=== PATIENT | male | born 1995 | race Caucasian/White ===

== ENCOUNTER 2017-12-26 12:36 | Emergency (ER) | payer OTHER ==
[~2017-12-26] VITALS: Ht 177.8 cm; Wt 68.0 kg
[~2017-12-26 12:36] MED LIST: ACETAMINOPHEN; ACETAMINOPHEN-1 EAC1 PO; ALLERGEN EAR DR15 M1 OT; AMOXICILLIN 50500 MG PO; AMOXICILLIN500 M1 PO; BACTROBAN15 GM TP; CARISOPRODOL 3350 MG PO; CIPROFLOXACIN500 M1 PO; FLOMAX0.4 MG PO; HYDROCODONE-APA1 TA1 PO; IBUPROFEN 400400 M1 PO; IBUPROFEN 800800 M1 PO; KEFLEX500 MG PO; LEXAPRO 10 MG T10 M1 PO; NOHOMEMEDICATIONS; NORCO 5-325 TA1 EACH PO; PERCOCET 5-3251 EACH PO; PERCOCET PO; TESSALON PERLE100 MG PO; ZOFRAN4 MG PO
[2017-12-26 12:49] LABS: ABSOLUTE BASOPHILS 0.1 thou/uL (0.0-0.2); ABSOLUTE EOSINOPHILS 0.1 thou/uL (0.0-0.7); ABSOLUTE LYMPHOCYTES 3.5 thou/uL (0.8-5.3); ABSOLUTE MONOCYTES 0.8 thou/uL (0.0-1.2); EOSINOPHILS 1.2 %; HEMATOCRIT 45.1 % (42.0-52.0); LYMPHOCYTES 40.9 %; MCH 28.8 pg (26.0-34.0); MCHC 33.2 g/dL (28.0-37.0); MCV 86.7 fL (80.0-100.0); MONOCYTES 9.9 %; MPV 9.2 fl. (7.2-11.1); NUCLEATED RBCS 0 /100WBC; PLATELET COUNT* 231 thou/uL (150-400); RBC 5.21 mil/uL (4.50-6.00); RDW-CV 13.4 % (10.5-14.5); WBC 8.5 thou/uL (4.0-11.0)
[2017-12-26 12:57] LABS: ANION GAP 9 mmol/L (7-16); BUN 10 mg/dL (7-18); CALCIUM 9.4 mg/dL (8.5-10.1); CHLORIDE 107 mmol/L (98-107); CO2 29 mmol/L (21-32); GLUCOSE 98 mg/dL (70-99); POTASSIUM 5.2 mmol/L (3.5-5.1); SODIUM 145 mmol/L (136-145)
[2017-12-26 13:04] LABS: ALCOHOL 183 mg/dL (<10); SALICYLATE < 2.8 mg/dL (2.8-20.0)
[2017-12-26 13:05] LABS: ACETAMINOPHEN < 2 ug/mL (10-30); ALBUMIN 4.4 g/dL (3.4-5.0); ALKALINE PHOSPHATASE 106 U/L (46-116); SGOT 22 U/L (15-37); SGPT 30 U/L (30-65); TOTAL BILIRUBIN 0.2 mg/dL (<0.1-1.0); TROPONIN-I LEVEL <0.06 ng/mL (<0.06)
[2017-12-26 13:50] LABS: URINE BILIRUBIN NEGATIVE (Negative); URINE BLOOD NEGATIVE (Negative); URINE CLARITY CLEAR; URINE COLOR YELLOW; URINE GLUCOSE-RANDOM NEGATIVE (Negative); URINE KETONES NEGATIVE (Negative); URINE LEUKOCYTES-REFLEX NEGATIVE (Negative); URINE NITRITE-REFLEX NEGATIVE (Negative); URINE PROTEIN NEGATIVE (Negative); URINE SPECIFIC GRAVITY 1.015 (1.005-1.030); URINE UROBILINOGEN 0.2 E.U./dl (0.2-1.0)
[2017-12-26 13:58] LABS: AMP/METHAMP Negative (Negative); BARBITURATES Negative (Negative); BENZODIAZEPINES Negative (Negative); COCAINE Negative (Negative); METHADONE Negative (Negative); OPIATES Negative (Negative); PCP Negative (Negative); THC Negative (Negative)
[2017-12-26 16:30] VITALS: BP 0/0
--- NOTE | 2017-12-27 17:24 | EKG ---
[place] [address] ELECTROCARDIOGRAM REPORT Name: ELLIOT URIOSTEGUI Room: [facility]#: [id number] Admission: 12/26/17 Attend Phys: Discharge: 12/26/17 Date of : [birth year] Report #: [id number] THIS REPORT FOR: //name// [facility] ED Test Date: 2017-12-26 Test Time: 13:17:42 Pat Name: ELLIOT URIOSTEGUI Department: Room: Gender: M Heading Maker: MAHIN : 1995 Requested By: Bony Severino Order Number: [id number] MD: Yaya Key Measurements Intervals [place] Rate: 77 P: 90 MS: 139 QRS: 100 QRSD: 99 T: 52 QT: 377 QTc: 427 Interpretive Statements Sinus rhythm Borderline right axis deviation ST elev, probable normal early repol pattern Baseline wander in lead(s) V2 Compared to ECG 10/13/2012 23:44:15 ST (T wave) deviation now present Incomplete right bundle-branch block no longer present Electronically Signed On 12-27-2017 17:24:07 CDT by Yaya Key [email or web address] <ELECTRONICALLY SIGNED> By: Yaya Key MD, FACC 12/27/17 1724 1317 1317 Yaya Key MD, FAC /EPI
== END 2017-12-26 16:30 | disposition home or self-care (01) ==
LOC: M.ERS 12:36
PROVIDERS: Emergency Medicine
DX: F10.129 Alcohol abuse with intoxication, unspecified (principal); F31.9 Bipolar disorder, unspecified; Y90.6 Blood alcohol level of 120-199 mg/100 ml

== ENCOUNTER 2020-02-14 20:41 | Emergency (ER) | payer OTHER | END 2020-02-14 21:38 | disposition left against medical advice (07) | LOC: M.ERS 20:41 | DX: Z53.21 Procedure and treatment not carried out due to patient leaving prior to being seen by health care provider (principal) ==